=== PATIENT | female | born 1970 | race American Indian/Alaskan Native ===

== ENCOUNTER 2016-12-18 11:35 | Emergency (ER) | payer SELFPAY | END 2016-12-18 13:20 | disposition left against medical advice (07) | LOC: ED 11:35 | DX: R10.9 Unspecified abdominal pain (principal); Z53.21 Procedure and treatment not carried out due to patient leaving prior to being seen by health care provider ==

== ENCOUNTER 2019-04-25 17:50 | Emergency (ER) | payer MEDICAID, OTHER ==
[2019-04-25] MEDS ORDERED: ASPIRIN PO ONE (18:22)
--- NOTE | 2019-04-25 18:24 | Emergency Department Report ---
Chief Complaint: Chest Pain Stated Complaint: CHEST PAIN Time Seen by Provider: 04/25/19 18:20 - HPI History of Present Illness: This is a 48 y.o. F. with substernal chest pain x 2 days. CC: SOB, pain worse with movement Patient states it feel like something cracked in chest. Current cigarette and marijuana smoker. - Exam Vital Signs: Vital Signs 04/25/19 18:20 Temperature 99.9 F H Pulse Rate 84 Respiratory 22 Rate Blood Pressure 123/91 O2 Sat by Pulse 96 Oximetry MSE screening note: Focused history and physical exam performed. Due to findings the following was ordered: This initial assessment/diagnostic orders/clinical plan/treatment(s) is/are subject to change based on patient's health status, clinical progression and re- assessment by fellow clinical providers in the ED. Further treatment and workup at subsequent clinical providers discretion. Patient/guardians urged not to elope from the ED as their condition may be serious if not clinically assessed and managed. Initial orders include: 1- Patient sent to [facility] for further evaluation and treatment 2- Labs, EKG, & CXR ED Disposition for MSE Condition: Stable
[2019-04-25 19:10] LABS: Basophils # (Auto) 0.1 K/mm3 (0.0-0.1); Basophils % (Auto) 1.1 % (0.0-1.8); Eosinophils # (Auto) 0.2 K/mm3 (0.0-0.4); Eosinophils % (Auto) 3.3 % (0.0-4.3); Hematocrit 43.1 % (30.3-42.9); Hemoglobin 14.5 gm/dl (10.1-14.3); Lymphocytes # (Auto) 1.5 K/mm3 (1.2-5.4); Lymphocytes % (Auto) 24.8 % (13.4-35.0); Mean Corpuscular HGB Conc 34 % (30-34); Mean Corpuscular Volume 99 fl (79-97); Monocytes # (Auto) 0.4 K/mm3 (0.0-0.8); Monocytes % (Auto) 7.5 % (0.0-7.3); Red Blood Count 4.38 M/mm3 (3.65-5.03); Red Cell Distribution Width 14.1 % (13.2-15.2)
[2019-04-25 19:27] LABS: BUN/Creatinine Ratio 18; Blood Urea Nitrogen 11 mg/dL (7-17); Calcium 9.1 mg/dL (8.4-10.2); Hemolysis Index 7
[2019-04-25 19:40] LABS: Platelet Count 64 K/mm3 (140-440)
--- NOTE | 2019-04-25 20:19 | XRay Report ---
PROCEDURE: XR CHEST 1V AP TECHNIQUE: Chest radiograph single view. HISTORY: Chest Pain COMPARISONS: None . FINDINGS: Single frontal view of the chest was acquired. The heart is normal in size. The lungs appea r clear. The pleura and mediastinum are within normal limits. IMPRESSION: No active disease in the chest This document is electronically signed by Luis Armando Lang MD., Apr 25 2019 08:17:31 PM ET
[2019-04-25] MEDS ORDERED: PERCOCET 5/325 PO STA (22:55)
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
[2019-04-26 01:13] VITALS: BP 116/67
== END 2019-04-26 01:13 | disposition home or self-care (01) ==
LOC: ED 17:50
DX: M94.0 Chondrocostal junction syndrome [Tietze] (principal); F17.200 Nicotine dependence, unspecified, uncomplicated; F12.10 Cannabis abuse, uncomplicated
CPT/HCPCS: 36415; 71045; 71250; 80048; 84484; 85025; 93005; 93010; 99285

== ENCOUNTER 2019-09-08 07:19 | Outpatient (CLI) | payer MEDICAID ==
--- NOTE | 2019-09-08 10:24 | Vascular Lab Report ---
DUPLEX DOPPLER LOWER EXTREMITY ARTERIAL, BILATERAL INDICATION: I73.9)Peripheral vascular disease, unspecified. TECHNIQUE: Arterial duplex examination of both lower extremities performed using B-mode, color flow and spectral Doppler assessment. FINDINGS: RIGHT: Common Femoral Artery: PSV 73 cm/sec. Triphasic waveform. Proximal SFA: PSV 88 cm/sec. Triphasic waveform. Mid SFA: PSV 96 cm/sec. Triphasic waveform. Distal SFA: PSV 76 cm/sec. Triphasic waveform. Popliteal artery: PSV 71 cm/sec. Triphasic waveform. Posterior tibial artery: PSV 59 cm/sec. Triphasic waveform. Anterior tibial artery: PSV 60 cm/sec. Triphasic waveform. Dorsalis Pedis Artery: PSV 34 cm/sec. Triphasic waveform. LEFT: Common Femoral Artery: PSV 81 cm/sec. Triphasic waveform. Proximal SFA: PSV 78 cm/sec. Triphasic waveform. Mid SFA: PSV 76 cm/sec. Triphasic waveform. Distal SFA: PSV 84 cm/sec. Triphasic waveform. Popliteal artery: PSV 57 cm/sec. Triphasic waveform. Posterior tibial artery: PSV 56 cm/sec. Triphasic waveform. Anterior tibial artery: PSV: 41 cm/s. Biphasic waveform. Dorsalis Pedis Artery: PSV 38 cm/sec. Biphasic waveform. IMPRESSION: No significant lower extremity peripheral artery disease. Doppler Waveform: * Triphasic is normal. * Biphasic is abnormal if clear transition from triphasic signal along vascular tree. * Monophasic is abnormal. Signer Name: Edgardo Nieves Jr, MD Signed: 09/08/2019 10:19 AM Workstation Name: [id number]
--- NOTE | 2019-09-08 11:35 | Fluoroscopy Report ---
UPPER GI HISTORY: K21.9) GASTRO-ESOPHAGEAL REFLUX DISEASE WITHOUT ESOPHAGITIS/R11.1. TECHNIQUE: Single and double contrast barium technique utilized to evaluate the esophagus, stomach, and duodenal C-loop. FINDINGS: To begin the exam, swallowing was evaluated in the lateral position under direct fluorosco py. Swallowing was normal. No mucosal irregularity, mass, mass effect, or critical stenosis. There were no abnormal tertiary c ontractions as seen with dysmotility. No gastroesophageal reflux. IMPRESSION: Unremarkable exam. Fluoroscopic time: 0.9 minutes Number of fluoroscopic images: 29 Signer Name: Edgardo Nieves Jr, MD Signed: 09/08/2019 11:31 AM Workstation Name: [id number]
--- NOTE | 2019-09-12 11:39 | Mammography Report ---
DIGITAL SCREENING MAMMOGRAM WITH CAD, 09/08/2019 INDICATION: Baseline screening mammography. TECHNIQUE: Digital bilateral 2D mammography was obtained in the craniocaudal and mediolateral obliq ue projections. This examination was interpreted with the benefit of Computer-Aided Detection analysi s. COMPARISON: None. FINDINGS: Breast Density: There are scattered areas of fibroglandular density. There is no evidence of dominant mass, suspicious calcifications or architectural distortion in the r ight breast. A left outer parenchymal asymmetry on the CC view requires additional imaging. There may be correlation on the MLO view. No architectural distortion or suspicious calcifications of the left breast. IMPRESSION: Left asymmetry requiring additional imaging. Recommend recall for left CC and MLO spot ma gnification views and left breast ultrasound if needed. Follow up recommendation: Special View: Mag Category 0: Incomplete. Needs additional imaging evaluation and/or prior mammograms for comparison. A "normal" or negative report should not discourage follow up or biopsy of a clinically significant f inding. A written summary of these findings will be mailed to the patient. The patient will be entered into a mammography reporting system which will generate a reminder letter for the patient's next appointmen t at the appropriate interval. The [employer] recommends yearly mammograms starting at age 40 and continuing as l joann as a woman is in good health. Breast MRI is recommended for women with an approximate 20-25% or greater lifetime risk of breast cancer, including women with a strong family history of breast or ova johanna cancer or who have been treated for Hodgkin's disease. Signer Name: Delmar Stewart MD Signed: 09/12/2019 11:34 AM Workstation Name: [id number]
== END 2019-09-08 07:20 | disposition home or self-care (01) ==
LOC: MAMMO 07:19
PROVIDERS: ATTEND Internal Medicine
DX: Z12.31 Encounter for screening mammogram for malignant neoplasm of breast (principal); K21.9 Gastro-esophageal reflux disease without esophagitis; R11.10 Vomiting, unspecified; M25.569 Pain in unspecified knee; I73.9 Peripheral vascular disease, unspecified; F17.200 Nicotine dependence, unspecified, uncomplicated
CPT/HCPCS: 74247; 77067; 93925

== ENCOUNTER 2019-10-31 13:21 | Outpatient (CLI) | payer MEDICAID ==
[2019-10-31 13:56] LABS: Albumin 3.4 g/dL (3.9-5); Bilirubin,Direct 0.3 mg/dL (0-0.2)
[2019-10-31 14:07] LABS: Hepatitis C Virus Antibody Non-Reactive (NonReactive)
[2019-10-31 15:14] LABS: Hepatitis B Surface Antigen Non-Reactive (Negative)
[2019-11-03 15:13] LABS: Vitamin D, 25-OH, D2 <4 ng/mL
== END 2019-10-31 13:22 | disposition home or self-care (01) ==
LOC: LAB 13:21
PROVIDERS: ATTEND Internal Medicine
DX: R94.5 Abnormal results of liver function studies (principal); E55.9 Vitamin D deficiency, unspecified
CPT/HCPCS: 36415; 80074; 80076; 82306

== ENCOUNTER 2020-04-03 11:00 | Outpatient (CLI) | payer MEDICAID | END 2020-04-03 11:01 | disposition home or self-care (01) | LOC: SLR 11:00 | PROVIDERS: ATTEND Internal Medicine | DX: G47.33 Obstructive sleep apnea (adult) (pediatric) (principal); E66.9 Obesity, unspecified | CPT/HCPCS: 95810 ==

== ENCOUNTER 2020-05-16 06:53 | Day surgery (SDC) | payer MEDICAID ==
[2020-05-16] MEDS ORDERED: LIDOCAINE (1%) 10 MG/1 ML VIAL 20 ML MDV ONE ×2 (13:04→13:56)
[2020-05-16] MEDS ORDERED: BUPIVACAINE/PF (0.5%) 5 MG/1 ML 30 ML VIAL INFILTRATI ONE ×2 (13:05→13:49)
[2020-05-16] MEDS ORDERED: BUPIVACAINE/PF (0.25%) 2.5 MG/ML 30 ML VIAL INFILTRATI ONE (13:05)
[2020-05-16] MEDS ORDERED: LIDOCAINE (1%) 10 MG/1 ML VIAL 20 ML MDV INFILTRATI ONE (13:42)
[2020-05-16 14:16] VITALS: BP 144/87
--- NOTE | 2020-05-16 16:27 | XRay Report ---
LEFT HIP ONE VIEW INDICATION: LT HIP ARTHRITIS. COMPARISON: 09/12/2019 IMPRESSION: 58 seconds of fluoroscopy time was provided by radiology during needle placement by orth opedics. A single AP fluoroscopic view of the left hip is presented with needle placement overlying t he medial joint space. There are moderate to severe degenerative changes at the left hip. The left f emoral head appears mildly deformed which could represent osteonecrosis. Signer Name: Edgardo Nieves Jr, MD Signed: 05/16/2020 4:22 PM Workstation Name: [id number]
--- NOTE | 2020-05-23 08:51 | Procedure Note ---
Date of procedure: 05/16/20 Pre-op diagnosis: Chronic left hip pain Post-op diagnosis: same Procedure: [Left] femoral and obturator nerve block hip joint Procedure The patient was brought to the OR placed on the or table in the supine position next C-arm fluoroscopy was used to establish landmarks around the hip joint following this the [left] hip and groin area was prepped and draped in a sterile manner a timeout procedure was done to identify the patient and correct operative site. Using the 21-gauge spinal needle a 0 fluoroscopy the anterior lateral portion of the acetabular rim was identified the spinal needle was placed up against the anterior border and 2% Marcaine was injected in the area of the femoral nerve articular branches. Following this a second spinal needle was then placed along the area corresponding to the Ischium on C-arm this area was anesthetized with lidocaine followed by insertion of the 21-gauge spinal needle and it was advanced just lateral to the teardrop on the inferior rim of the acetabulum ball was palpated as well The 2% Marcaine was injected into this location to anesthetize the obturator nerve the spinal needle was then removed pressure was applied over the puncture wound was followed by placement of 2 Band-Aids. The patient tolerated the procedure he was then taken back to the preop holding area where he was discharged to home Anesthesia: local Surgeon: SUNG VILLALTA Estimated blood loss: minimal Pathology: none Condition: stable Disposition: observation
== END 2020-05-16 06:54 | disposition home or self-care (01) ==
LOC: OR 06:53
PROVIDERS: ATTEND Orthopaedic Surgery
DX: M25.552 Pain in left hip (principal); G89.29 Other chronic pain; K21.9 Gastro-esophageal reflux disease without esophagitis; M19.90 Unspecified osteoarthritis, unspecified site; F17.210 Nicotine dependence, cigarettes, uncomplicated; Z79.899 Other long term (current) drug therapy; Z98.891 History of uterine scar from previous surgery; Z87.440 Personal history of urinary (tract) infections; Z72.89 Other problems related to lifestyle; Z98.890 Other specified postprocedural states; Z86.2 Personal history of diseases of the blood and blood-forming organs and certain disorders involving the immune mechanism

== ENCOUNTER 2020-05-27 11:58 | Outpatient (CLI) | payer MEDICAID ==
[2020-05-27 12:17] LABS: Basophils % (Auto) 0.7 % (0.0-1.8); Eosinophils # (Auto) 0.2 K/mm3 (0.0-0.4); Eosinophils % (Auto) 2.8 % (0.0-4.3); Hematocrit 42.6 % (30.3-42.9); Hemoglobin 14.5 gm/dl (10.1-14.3); Lymphocytes # (Auto) 1.3 K/mm3 (1.2-5.4); Mean Corpuscular HGB Conc 34 % (30-34); Mean Corpuscular Volume 101 fl (79-97); Monocytes # (Auto) 0.5 K/mm3 (0.0-0.8); Monocytes % (Auto) 8.4 % (0.0-7.3); Red Blood Count 4.23 M/mm3 (3.65-5.03); Red Cell Distribution Width 14.6 % (13.2-15.2)
[2020-05-27 12:21] LABS: Platelet Count 65 K/mm3 (140-440)
[2020-05-27 13:07] LABS: Bilirubin,Direct 0.3 mg/dL (0-0.2)
[2020-05-27 13:08] LABS: Albumin 3.2 g/dL (3.9-5)
== END 2020-05-27 11:59 | disposition home or self-care (01) ==
LOC: LAB 11:58
PROVIDERS: ATTEND Internal Medicine
DX: R94.5 Abnormal results of liver function studies (principal); D69.6 Thrombocytopenia, unspecified; R60.0 Localized edema; I10 Essential (primary) hypertension
CPT/HCPCS: 36415; 80076; 85025

== ENCOUNTER 2020-07-29 11:00 | Outpatient (CLI) | payer MEDICAID | END 2020-07-29 11:01 | disposition home or self-care (01) | LOC: SLR 11:00 | PROVIDERS: ATTEND Otolaryngology | DX: G47.33 Obstructive sleep apnea (adult) (pediatric) (principal); E66.9 Obesity, unspecified; R40.0 Somnolence | CPT/HCPCS: 95811 ==

== ENCOUNTER 2020-08-30 11:41 | Outpatient (CLI) | payer MEDICAID ==
[2020-08-30 12:39] LABS: Basophils % (Auto) 0.7 % (0.0-1.8); Eosinophils # (Auto) 0.2 K/mm3 (0.0-0.4); Hemoglobin 14.7 gm/dl (10.1-14.3); Lymphocytes # (Auto) 1.3 K/mm3 (1.2-5.4); Lymphocytes % (Auto) 30.1 % (13.4-35.0); Mean Corpuscular HGB Conc 35 % (30-34); Mean Corpuscular Volume 98 fl (79-97); Monocytes # (Auto) 0.4 K/mm3 (0.0-0.8); Monocytes % (Auto) 8.2 % (0.0-7.3); Red Blood Count 4.27 M/mm3 (3.65-5.03); Red Cell Distribution Width 14.1 % (13.2-15.2)
[2020-08-30 12:58] LABS: Albumin 3.4 g/dL (3.9-5); Bilirubin,Direct 0.3 mg/dL (0-0.2)
[2020-08-30 12:59] LABS: Platelet Count 52 K/mm3 (140-440)
== END 2020-08-30 11:42 | disposition home or self-care (01) ==
LOC: LAB 11:41
PROVIDERS: ATTEND Internal Medicine
DX: E55.9 Vitamin D deficiency, unspecified (principal); E56.9 Vitamin deficiency, unspecified; D69.6 Thrombocytopenia, unspecified; R73.09 Other abnormal glucose; R94.5 Abnormal results of liver function studies
CPT/HCPCS: 36415; 80076; 82306; 82607; 83036; 85025

== ENCOUNTER 2020-10-15 09:40 | Emergency (ER) | payer MEDICAID ==
[2020-10-15 09:54] VITALS: BP 139/91
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
[2020-10-15 10:41] LABS: Basophils % (Auto) 0.5 % (0.0-1.8); Eosinophils # (Auto) 0.2 K/mm3 (0.0-0.4); Eosinophils % (Auto) 3.7 % (0.0-4.3); Hematocrit 44.9 % (30.3-42.9); Hemoglobin 15.3 gm/dl (10.1-14.3); Lymphocytes # (Auto) 1.4 K/mm3 (1.2-5.4); Lymphocytes % (Auto) 26.1 % (13.4-35.0); Mean Corpuscular HGB Conc 34 % (30-34); Mean Corpuscular Volume 99 fl (79-97); Monocytes # (Auto) 0.5 K/mm3 (0.0-0.8); Monocytes % (Auto) 8.7 % (0.0-7.3); Red Blood Count 4.52 M/mm3 (3.65-5.03); Red Cell Distribution Width 13.8 % (13.2-15.2)
[2020-10-15 10:56] LABS: Platelet Count 67 K/mm3 (140-440)
[2020-10-15 11:06] LABS: Alanine Aminotransferase 40 units/L (7-56); Albumin 3.4 g/dL (3.9-5); Blood Urea Nitrogen 10 mg/dL (7-17); Calcium 8.9 mg/dL (8.4-10.2); Hemolysis Index 2
[2020-10-15 11:19] LABS: Bilirubin,Urine NEG (Negative); Blood,Urine NEG (Negative); Color,Urine Yellow (Yellow); Protein,Urine <15 mg/dL mg/dL (Negative); Urobilinogen,Urine < 2.0 mg/dL (<2.0)
[2020-10-15 11:21] LABS: BUN/Creatinine Ratio 14
--- NOTE | 2020-10-15 15:03 | Cat Scan Report ---
CT ABDOMEN AND PELVIS WITH CONTRAST INDICATION / CLINICAL INFORMATION: RLQ pain, N/V. TECHNIQUE: Axial CT images were obtained through the abdomen and pelvis after 100 mL of Omnipaque [address] scans at this location are performed using CT dose reduction for ALARA by means of automated exposure control. COMPARISON: CT abdomen and pelvis dated 11/06/2014. FINDINGS: LOWER CHEST: Unremarkable LIVER: There is cirrhotic morphology of the liver. There are stable linear areas of hypoattenuation a t the hepatic dome without focal hepatic lesion identified. GALLBLADDER/BILIARY TREE: There is cholelithiasis. No CT findings of cholecystitis. PANCREAS: Unremarkable SPLEEN: Borderline splenomegaly, measuring 13.2 cm. No focal lesion is identified. ADRENALS: Unremarkable KIDNEYS / URETER: Unremarkable URINARY BLADDER: Bladder is partially decompressed, though grossly unremarkable. REPRODUCTIVE ORGANS: Unremarkable STOMACH / SMALL BOWEL: Stomach and small bowel are normal in caliber. No evidence of bowel inflammati on. COLON: Colon is unremarkable. The appendix is visualized and is normal. LYMPH NODES: No significant adenopathy. VASCULATURE: No significant abnormality. OTHER: No free air, free fluid, or focal fluid collection is identified. SKELETAL SYSTEM: Moderate left hip osteoarthritis. Mild scattered degenerative changes of the spine. No acute osseous findings. IMPRESSION: 1. No acute abnormality of the abdomen or pelvis. 2. Cirrhotic morphology of the liver with borderline splenomegaly. 3. Other stable chronic and incidental findings, as above. Signer Name: Ang Aguilar MD Signed: 10/15/2020 2:58 PM Workstation Name: [id number]
== END 2020-10-15 14:52 | disposition left against medical advice (07) ==
LOC: ED 09:40
DX: K74.60 Unspecified cirrhosis of liver (principal); K76.9 Liver disease, unspecified; K80.20 Calculus of gallbladder without cholecystitis without obstruction; R10.31 Right lower quadrant pain; K21.9 Gastro-esophageal reflux disease without esophagitis; M19.90 Unspecified osteoarthritis, unspecified site; E66.01 Morbid (severe) obesity due to excess calories; F17.200 Nicotine dependence, unspecified, uncomplicated; Z79.899 Other long term (current) drug therapy; Z68.43 Body mass index [BMI] 50.0-59.9, adult; Z98.890 Other specified postprocedural states
CPT/HCPCS: 36415; 74177; 80053; 81001; 85025; 99284; Q9967

== ENCOUNTER 2021-02-05 23:16 | Observation (INO) | payer MEDICAID ==
[2021-02-05] MEDS ORDERED: ONDANSETRON 4 MG/2 ML INJ IV ONE (23:36)
[2021-02-05] MEDS ORDERED: MORPHINE 4 MG/1 ML INJ IV ONE (23:36)
[2021-02-05] MEDS ORDERED: FAMOTIDINE 20 MG/2 ML INJ IV ONE (23:36)
--- NOTE | 2021-02-05 23:41 | Event Note ---
ED Screening Note Date of service: 02/05/21 Time: 23:38 ED Screening Note: Patient is a 50 yo AA female with a h/o HTN and morbid obesity who presents to the ED with acute onset RUQ pain for the last 6 hours. Patient states that she was initially diagnosed with cholelithiasis 5 months ago and has not been able to follow up with any General Surgeon. Patient states that he symptoms got worse in the last 2 hours. Patient denies dizziness, fever, chills, diarrhea, cough, chest pain, dyspnea, or sore throat, syncope or dysuria and hematuria This initial assessment/diagnostic orders/clinical plan/treatment(s) is/are subject to change based on patients health status, clinical progression and re- assessment by fellow clinical providers in the ED. Further treatment and workup at subsequent clinical providers discretion. Patient/guardian urged not to elope from the ED as their condition may be serious if not clinically assessed and managed. Initial orders include: CBC, CMP, UA, Lipase, EKG, Troponin, RUQ Gallbladder US
[2021-02-05 23:52] LABS: Basophils % (Auto) 0.8 % (0.0-1.8); Eosinophils # (Auto) 0.2 K/mm3 (0.0-0.4); Eosinophils % (Auto) 3.8 % (0.0-4.3); Hematocrit 42.6 % (30.3-42.9); Hemoglobin 14.6 gm/dl (10.1-14.3); Lymphocytes # (Auto) 0.9 K/mm3 (1.2-5.4); Lymphocytes % (Auto) 22.3 % (13.4-35.0); Mean Corpuscular HGB Conc 34 % (30-34); Mean Corpuscular Volume 99 fl (79-97); Monocytes # (Auto) 0.4 K/mm3 (0.0-0.8); Monocytes % (Auto) 9.5 % (0.0-7.3); Red Blood Count 4.29 M/mm3 (3.65-5.03); Red Cell Distribution Width 13.5 % (13.2-15.2)
[2021-02-06 00:02] LABS: Platelet Count 68 K/mm3 (140-440)
[2021-02-06 00:37] LABS: Alanine Aminotransferase 36 units/L (7-56); Albumin 3.6 g/dL (3.9-5); Blood Urea Nitrogen 9 mg/dL (7-17); Calcium 8.8 mg/dL (8.4-10.2); Hemolysis Index 3
[2021-02-06 00:40] LABS: BUN/Creatinine Ratio 13
--- NOTE | 2021-02-06 00:51 | Emergency Department Report ---
ED Abdominal Pain HPI - General Chief Complaint: Abdominal Pain Stated Complaint: RT SIDE ABD PAIN PUI?: No Time Seen by Provider: 02/06/21 00:47 Source: patient Mode of arrival: Ambulatory Limitations: No Limitations - History of Present Illness Initial Comments: Patient is a 50-year-old female that presents emergency room with complaints of right upper quadrant pain. Patient states that her right upper quadrant pain started today at 4:30 PM. Patient states she has not had anything sent to eat since breakfast. Patient denies nausea vomiting and diarrhea. Patient states the pain is caused her to lose her appetite. Patient states she had dwyer for breakfast this morning and has not eaten since. Patient states the pain is a 10 out of 10. Patient states the pain is better with rest and worse with movement. Patient dates the pain is also worse with palpation and eating. Patient denies fever and chills. Patient denies nausea vomiting and diarrhea. Patient denies chest pain or shortness of breath. Patient states she has a history of gallstones. Patient states she is never seen a surgeon for her gallbladder. Patient denies recent travel. Patient denies recent international travel. Patient denies exposure to the novel coronavirus. Patient denies sick contacts. Patient denies fever and chills. Patient denies cough. Patient denies diarrhea. Patient denies coming in contact with anybody with symptoms of the novel coronavirus. Complaint: abdominal pain -: Sudden Location: RUQ Radiation: none Migration to: no migration Severity: severe Severity scale (0 -10): 7 Quality: stabbing Consistency: constant Improves With: rest Worsens With: eating, movement Associated Symptoms: denies: nausea, vomiting, diarrhea, fever, chills, constipation, dysuria, hematemesis, hematochezia, melena, hematuria, anorexia, syncope - Related Data Home Medications Medication Instructions Recorded Confirmed Last Taken Omeprazole 20 mg PO DAILY 05/03/20 05/06/20 Unknown Allergies Allergy/AdvReac Type Severity Reaction Status Date / Time No Known Allergies Allergy Unverified 05/14/20 14:06 ED Review of Systems ROS: Stated complaint: RT SIDE ABD PAIN Other details as noted in HPI Constitutional: denies: chills, fever Eyes: denies: eye pain, eye discharge, vision change ENT: denies: ear pain, throat pain Respiratory: denies: cough, shortness of breath, wheezing Cardiovascular: denies: chest pain, palpitations Endocrine: no symptoms reported Gastrointestinal: as per HPI, abdominal pain. 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 chronic back pain. Morbid obesity - Surgical History Past Surgical History?: Yes Additional Surgical History: , pins in both hips - Family History Family history: no significant - Social History Smoking Status: Current Every Day Smoker Substance Use Type: None - Medications Home Medications: Home Medications Medication Instructions Recorded Confirmed Last Taken Type Omeprazole 20 mg PO DAILY 05/03/20 05/06/20 Unknown History ED Physical Exam - General Limitations: No Limitations General appearance: alert, in no apparent distress - Head Head exam: Present: atraumatic, normocephalic - Eye Eye exam: Present: normal appearance - ENT ENT exam: Present: mucous membranes moist - Neck Neck exam: Present: normal inspection - Respiratory Respiratory exam: Present: normal lung sounds bilaterally. Absent: respiratory distress - Cardiovascular Cardiovascular Exam: Present: regular rate, normal rhythm. Absent: systolic murmur, diastolic murmur, rubs, gallop - GI/Abdominal GI/Abdominal exam: Present: soft, tenderness (Right upper quadrant tenderness to palpation), normal bowel sounds - Extremities Exam Extremities exam: Present: normal inspection - Back Exam Back exam: Present: normal inspection - Neurological Exam Neurological exam: Present: alert, oriented X3 - Psychiatric Psychiatric exam: Present: normal affect, normal mood - Skin Skin exam: Present: warm, dry, intact, normal color. Absent: rash ED Course Vital Signs 02/05/21 23:31 Temperature 97.8 F Pulse Rate 70 Respiratory 20 Rate Blood Pressure 162/99 O2 Sat by Pulse 99 Oximetry - Reevaluation(s) Reevaluation #1: Patient's pain is better with morphine. Patient's ultrasound is pending. 02/06/21 00:57 Reevaluation #2: Patient states her pain is back to 10 out of 10. Patient given Dilaudid. I discussed all results with patient. I discussed plan of care with patient. Patient agrees with plan of care and admission. Patient to be admitted to the hospitalist service. 02/06/21 01:58 - Consultations Consultation #1: Hospitalist consulted for admission. Hospitalist to admit patient. 02/06/21 01:58 Consultation #2: General surgery consulted. 02/06/21 01:58 ED Medical Decision Making - Lab Data Result diagrams: 02/05/21 23:41 02/05/21 23:41 - EKG Data -: EKG Interpreted by Me EKG shows normal: sinus rhythm, axis, intervals, QRS complexes, ST-T waves Rate: normal - Radiology Data Radiology results: report reviewed ULTRASOUND ABDOMEN, LIMITED (RIGHT UPPER QUADRANT) INDICATION: RUQ Pain - r/o Cholecystitis. COMPARISON: None available. FINDINGS: Pancreas: Visualized portion shows no significant abnormality. Liver: Increased echogenicity. Gallbladder: Small gallstones. The gallbladder is distended measuring 12 cm. No wall thickening. Bile ducts: Normal. Common Bile Duct measures 2.8 mm. Free fluid: None. Additional Findings: None. IMPRESSION: 1. Small gallstones and gallbladder distention. 2. Suspected fatty liver. - Medical Decision Making Patient is a 50-year-old female that presents emergency room with complaints of right upper quadrant pain. Patient has history of gallstones. Patient had an ultrasound which shows multiple gallstones and distended gallbladder. Patient has symptomatic gallstones. Patient given multiple pain medications in the ER and pain continued. Patient given fluids. Patient had labs done which showed abnormal bilirubin and abnormal LFTs. LFTs could be abnormal due to fatty liver. Patient admitted to the hospital service for further evaluation treatment. Patient made n.p.o. Neurosurgery consulted. Critical care time documented due to the multiple reassessments, prolonged time at the bedside, interpretation of diagnostics and labs and multiple consultants.. - Differential Diagnosis Cholecystitis, cholelithiasis, abdominal pain, gallbladder colic Critical Care Time: Yes Critical care time in (mins) excluding proc time.: 35 Critical care attestation.: If time is entered above; I have spent that time in minutes in the direct care of this critically ill patient, excluding procedure time. Critical Care Time: 35 minutes ED Disposition Clinical Impression: Gallstones, Abnormal LFTs, Elevated bilirubin, Fatty liver Abdominal pain Qualifiers: Abdominal location: right upper quadrant Qualified Code(s): R10.11 - Right upper quadrant pain Cholelithiasis Qualifiers: Cholelithiasis location: gallbladder and bile duct Cholecystitis presence: without cholecystitis Biliary obstruction: with biliary obstruction Qualified Code(s): K80.71 - Calculus of gallbladder and bile duct without cholecystitis with obstruction Disposition: DC-09 OP ADMIT IP TO THIS HOSP Is pt being admited?: Yes Does the pt Need Aspirin: No Condition: Critical Instructions: Abdominal Pain (ED) Time of Disposition: 02:03
--- NOTE | 2021-02-06 01:20 | Ultrasound Report ---
ULTRASOUND ABDOMEN, LIMITED (RIGHT UPPER QUADRANT) INDICATION: RUQ Pain - r/o Cholecystitis. COMPARISON: None available. FINDINGS: Pancreas: Visualized portion shows no significant abnormality. Liver: Increased echogenicity. Gallbladder: Small gallstones. The gallbladder is distended measuring 12 cm. No wall thickening. Bile ducts: Normal. Common Bile Duct measures 2.8 mm. Free fluid: None. Additional Findings: None. IMPRESSION: 1. Small gallstones and gallbladder distention. 2. Suspected fatty liver. Signer Name: Dutch Lou MD Signed: 02/06/2021 1:16 AM Workstation Name: [id number]
[2021-02-06] MEDS ORDERED: HYDROmorphone 1 MG/1 ML INJ IV ONE (01:56)
[2021-02-06] MEDS ORDERED: SODIUM CHLORIDE 0.9% 1000 ML 1,000 ML IV ONE (01:57)
[2021-02-06 03:24] VITALS: BP 144/81
[2021-02-06] MEDS ORDERED: ONDANSETRON 4 MG/2 ML INJ IV PRN ×2 (08:27→09:00)
--- NOTE | 2021-02-06 08:34 | History and Physical Report ---
History of Present Illness Date of examination: 02/06/21 Date of admission: 02/06/21 02:03 Chief complaint: Right upper quadrant pain History of present illness: 50-year-old -[place] female with past medical history significant for obesity presents to the emergency department with complaints of right upper quadrant pain that started yesterday morning. She said the pain was very bad 15 out of 10 in intensity, sometimes sharp sometimes dull, no radiation, pain is getting worse when she lies flat, no alleviating factors identified. Patient denied shortness of breath, fever or cough. Patient denied any contact with Covid patient. Patient said she had one episode of vomiting but no diarrhea or constipation. She said she is working aerobics to lose weight and she lost 22 pounds over a year. Work-up in the emergency department was unremarkable except the right upper quadrant ultrasound which showed gallstones and distended gallbladder. LFTs s light elevation in AST. General surgery was consulted and patient admitted to medical floor. REVIEW OF SYSTEMS: GENERAL: no weight change, no fatigue, no fever HEAD: no head ache EYES: no blurry vision, no acute visual loss EARS: no hearing loss, no discharge, no earache NOSE: no stuffiness, no sneezing, no discharge MOUTH, THROAT AND NECK: no bleeding gums, no sore throat, no swollen neck CARDIAC: no palpitations, no dyspnea on exertion, no orthopnea, no PND, no edema, no chest pain RESPIRATORY: no shortness of breath, no wheeze, no cough, no sputum, no hemoptysis, no asthma GI: no decreased appetite, no nausea, no vomiting, no dysphagia, no diarrhea, no constipation, no abdominal pain URINARY: No urgency, hematuria, dysuria or frequency. MUSCULOSKELETAL: no muscle weakness, no pain, no joint stiffness NEUROLOGIC: no loss of sensation/numbness, no tingling, no tremors, no weakness/paralysis HEMATOLOGIC: no anemia, no easy bruising SKIN: no rashes ENDOCRINE: no heat/cold intolerance, no polyuria, no polydipsia, no thyroid problems, no diabetes PSYCHIATRIC: no anxiety, no depression, no suicidal ideations Past History Past Medical History: other (Obese) Past Surgical History: , total hip replacement Social history: smoking (1 pack over 3 days, smokes marijuana), full code. migdalia es: alcohol abuse, prescription drug abuse, IV drug use Family history: no significant family history Medications and Allergies Allergies Allergy/AdvReac Type Severity Reaction Status Date / Time No Known Allergies Allergy Unverified 05/14/20 14:06 Home Medications Medication Instructions Recorded Confirmed Last Taken Type Famotidine [Acid Controller] 10 mg PO DAILY 02/06/21 02/06/21 Unknown History Active Meds: Active Medications Acetaminophen (Acetaminophen 325 Mg Tab) 650 mg PO Q4H PRN PRN Reason: Pain MILD(1-3)/Fever >100.5/NUÑEZ Famotidine (Famotidine 20 Mg/2 Ml Inj) 20 mg IV BID ESHA Sodium Chloride (Nacl 0.45% 1000 Ml) 1,000 mls @ 75 mls/hr IV DIRECT [facility] Morphine Sulfate (Morphine 2 Mg/1 Ml Inj) 2 mg IV Q4H PRN PRN Reason: Pain, Moderate (4-6) Ondansetron HCl (Ondansetron 4 Mg/2 Ml Inj) 4 mg IV Q8H PRN PRN Reason: Nausea And Vomiting Ondansetron HCl (Ondansetron 4 Mg/2 Ml Inj) 4 mg IV Q8H PRN PRN Reason: N/V unrelieved by Reglan Sodium Chloride (Sodium Chloride 0.9% 10 Ml Flush Syringe) 10 ml IV BID ESHA Sodium Chloride (Sodium Chloride 0.9% 10 Ml Flush Syringe) 10 ml IV PRN PRN PRN Reason: LINE FLUSH Exam - Physical Exam Narrative exam: Not in cardiopulmonary distress. The patient is morbidly obese Vital signs as documented. Head exam is unremarkable. No scleral icterus . Neck is without jugular venous distension, thyromegaly, or carotid bruits. Lungs are clear to auscultation. Cardiac exam reveals regular rate and Rhythm. Abdominal exam reveals normal bowel sounds, no organomegaly. Right upper quadrant tenderness. Extremities are nonedematous and both femoral and pedal pulses are normal. LEAF FAT SCRAPER: Alert and oriented 3. No focal weakness. - Constitutional Vitals: Temp Pulse Resp BP Pulse Ox 97.5 F L 52 L 16 144/81 98 02/06/21 03:18 02/06/21 03:18 02/06/21 03:18 02/06/21 03:18 02/06/21 03:18 HEART Score - HEART Score Troponin: Troponin T < 0.010 ng/mL (0.00-0.029) 02/05/21 23:41 Results - Labs CBC & Chem 7: 02/05/21 23:41 02/05/21 23:41 Labs: Laboratory Last Values WBC 4.1 K/mm3 (4.5-11.0) L 02/05/21 23:41 RBC 4.29 M/mm3 (3.65-5.03) 02/05/21 23:41 Hgb 14.6 gm/dl (10.1-14.3) H 02/05/21 23:41 Hct 42.6 % (30.3-42.9) 02/05/21 23:41 MCV 99 fl (79-97) H 02/05/21 23:41 MCH 34 pg (28-32) H 02/05/21 23:41 MCHC 34 % (30-34) 02/05/21 23:41 RDW 13.5 % (13.2-15.2) 02/05/21 23:41 Plt Count 68 K/mm3 (140-440) L 02/05/21 23:41 Lymph % (Auto) 22.3 % (13.4-35.0) 02/05/21 23:41 [place] % (Auto) 9.5 % (0.0-7.3) H 02/05/21 23:41 Eos % (Auto) 3.8 % (0.0-4.3) 02/05/21 23:41 Baso % (Auto) 0.8 % (0.0-1.8) 02/05/21 23:41 Lymph # (Auto) 0.9 K/mm3 (1.2-5.4) L 02/05/21 23:41 [place] # (Auto) 0.4 K/mm3 (0.0-0.8) 02/05/21 23:41 Eos # (Auto) 0.2 K/mm3 (0.0-0.4) 02/05/21 23:41 Baso # (Auto) 0.0 K/mm3 (0.0-0.1) 02/05/21 23:41 Seg Neutrophils % 63.6 % (40.0-70.0) 02/05/21 23:41 Seg Neutrophils # 2.6 K/mm3 (1.8-7.7) 03/10/21 23:41 Sodium 137 mmol/L (137-145) 02/05/21 23:41 Potassium 4.3 mmol/L (3.6-5.0) 02/05/21 23:41 Chloride 100.1 mmol/L (98-107) 02/05/21 23:41 Carbon Dioxide 29 mmol/L (22-30) 02/05/21 23:41 Anion Gap 12 mmol/L 02/05/21 23:41 BUN 9 mg/dL (7-17) 02/05/21 23:41 Creatinine 0.7 mg/dL (0.6-1.2) 02/05/21 23:41 Estimated GFR > 60 ml/min 02/05/21 23:41 BUN/Creatinine Ratio 13 % 02/05/21 23:41 Glucose 111 mg/dL (65-100) H 02/05/21 23:41 Calcium 8.8 mg/dL (8.4-10.2) 02/05/21 23:41 Total Bilirubin 1.90 mg/dL (0.1-1.2) H 02/05/21 23:41 AST 62 units/L (5-40) H 02/05/21 23:41 ALT 36 units/L (7-56) 02/05/21 23:41 Alkaline Phosphatase 201 units/L (35-129) H 02/05/21 23:41 Troponin T < 0.010 ng/mL (0.00-0.029) 02/05/21 23:41 Total Protein 7.3 g/dL (6.3-8.2) 02/05/21 23:41 Albumin 3.6 g/dL (3.9-5) L 02/05/21 23:41 Albumin/Globulin Ratio 1.0 % 02/05/21 23:41 Lipase 38 units/L (13-60) 02/05/21 23:44 Assessment and Plan Assessment and plan: Symptomatic cholelithiasis -Ultrasound showed small stones and distended gallbladder -Dr. Calvillo consulted -Keep her n.p.o., IV fluids and pain control Morbid obesity -Patient is working on losing weight and encouraged her to continue Active tobacco smoker -Counseled about cessation of smoking DVT prophylaxis -SCDs because patient is scheduled for surgery Disposition -Mid to medical floor CODE STATUS; full Management plan was discussed with the patient and was in agreement with the plan of care. Advance Directives: Yes VTE prophylaxis?: Mechanical Reason for no VTE Prophylaxis: Surgical contraindication Plan of care discussed with patient/family: Yes
[2021-02-06] MEDS ORDERED: ACETAMINOPHEN 325 MG TAB PO PRN (09:00)
[2021-02-06] MEDS ORDERED: MORPHINE 2 MG/1 ML INJ IV PRN (09:00)
[2021-02-06] MEDS: SODIUM CHLORIDE 0.45% 1000 ML 1,000 ML IV SCH ×2 (09:47→16:42)
[2021-02-06] MEDS ORDERED: FAMOTIDINE 20 MG/2 ML INJ IV SCH (10:00)
--- NOTE | 2021-02-06 17:14 | Consultation ---
History of Present Illness Consult date: 02/06/21 Reason for consult: abdominal pain - History of present illness History of present illness: 50 yo female with 24 hr h/o RUQ pain, nausea and vomiting. She has a h/o thrombocytopenia with a platelet count as low as 51k. Past History Past Medical History: other (Obese, thrombocytopenia) Past Surgical History: , total hip replacement Social history: smoking (1 pack over 3 days, smokes marijuana), full code. denies: alcohol abuse, prescription drug abuse, IV drug use Family history: no significant family history Medications and Allergies Allergies Allergy/AdvReac Type Severity Reaction Status Date / Time No Known Allergies Allergy Unverified 05/14/20 14:06 Home Medications Medication Instructions Recorded Confirmed Last Taken Type Famotidine [Acid Controller] 10 mg PO DAILY 02/06/21 02/06/21 Unknown History Active Meds: Active Medications Acetaminophen (Acetaminophen 325 Mg Tab) 650 mg PO Q4H PRN PRN Reason: Pain MILD(1-3)/Fever >100.5/NUÑEZ Famotidine (Famotidine 20 Mg/2 Ml Inj) 20 mg IV BID [facility] Last Admin: 02/06/21 09:48 Dose: 20 mg Documented by: Sodium Chloride (Nacl 0.45% 1000 Ml) 1,000 mls @ 75 mls/hr IV DIRECT [facility] Last Admin: 02/06/21 16:42 Dose: 75 mls/hr Documented by: Piperacillin Sod/Tazobactam Sod (Zosyn/Ns 4.5gm/100ml) 4.5 gm in 100 mls @ 200 mls/hr IV Q8HR [facility]; Protocol Morphine Sulfate (Morphine 2 Mg/1 Ml Inj) 2 mg IV Q4H PRN PRN Reason: Pain, Moderate (4-6) Last Admin: 02/06/21 16:34 Dose: 2 mg Documented by: Ondansetron HCl (Ondansetron 4 Mg/2 Ml Inj) 4 mg IV Q8H PRN PRN Reason: Nausea And Vomiting Sodium Chloride (Sodium Chloride 0.9% 10 Ml Flush Syringe) 10 ml IV BID [facility] Last Admin: 02/06/21 16:42 Dose: 10 ml Documented by: Sodium Chloride (Sodium Chloride 0.9% 10 Ml Flush Syringe) 10 ml IV PRN PRN PRN Reason: LINE FLUSH Review of Systems All systems: negative (none) Exam Vital Signs Temp Pulse Resp BP Pulse Ox 97.8 F 70 20 162/99 99 02/05/21 23:31 02/05/21 23:31 02/05/21 23:31 02/05/21 23:31 02/05/21 23:31 - General physical appearance Positive: well developed, well nourished, no distress - Eyes Positive: PERRL, normal occular movement - ENT Positive: normal pinna, normal nares, normal mucosa, no hearing loss, no conges tion - Neck Positive: no masses, no bruits, trachea midline, no venous distension - Respiratory Positive: normal expansion, normal respiratory effort, clear to auscultation - Cardiovascular Rhythm: regular Heart Sounds: Present: S1 & S2. Absent: rub, click - Extremities Extremities: no ischemia, pulses symmetrical, No edema - Breasts Breasts: normal, no mass, no skin changes - Abdomen Abdomen: Present: soft, bowel sounds normal. Absent: tender, distended Hernia: none - Genitourinary Male Genitourinary: normal Female Genitourinary: normal - Integumentary no rash, no growths, no abnormal pigmentation - Neurologic Neurologic: alert and oriented to time, place and person, motor strength and sensation are grossly intact - Musculoskeletal normal gait, normal posture - Psychiatric Psychiatric: appropriate mood/affect, intact judgment & insight Results - Labs 02/05/21 23:41 02/05/21 23:41 Abnormal lab results 02/05/21 02/05/21 Range/Units 23:41 23:41 WBC 4.1 L (4.5-11.0) K/mm3 Hgb 14.6 H (10.1-14.3) gm/dl MCV 99 H (79-97) fl MCH 34 H (28-32) pg Plt Count 68 L (140-440) K/mm3 [place] % (Auto) 9.5 H (0.0-7.3) % Lymph # (Auto) 0.9 L (1.2-5.4) K/mm3 Glucose 111 H (65-100) mg/dL Total Bilirubin 1.90 H (0.1-1.2) mg/dL AST 62 H (5-40) units/L Alkaline Phosphatase 201 H (35-129) units/L Albumin 3.6 L (3.9-5) g/dL Diabetes panel 02/05/21 Range/Units 23:41 Sodium 137 (137-145) mmol/L Potassium 4.3 (3.6-5.0) mmol/L Chloride 100.1 (98-107) mmol/L Carbon Dioxide 29 (22-30) mmol/L BUN 9 (7-17) mg/dL Creatinine 0.7 (0.6-1.2) mg/dL Glucose 111 H (65-100) mg/dL Calcium 8.8 (8.4-10.2) mg/dL AST 62 H (5-40) units/L ALT 36 (7-56) units/L Alkaline Phosphatase 201 H (35-129) units/L Total Protein 7.3 (6.3-8.2) g/dL Albumin 3.6 L (3.9-5) g/dL Calcium panel 02/05/21 Range/Units 23:41 Calcium 8.8 (8.4-10.2) mg/dL Albumin 3.6 L (3.9-5) g/dL Pituitary panel 02/05/21 Range/Units 23:41 Sodium 137 (137-145) mmol/L Potassium 4.3 (3.6-5.0) mmol/L Chloride 100.1 (98-107) mmol/L Carbon Dioxide 29 (22-30) mmol/L BUN 9 (7-17) mg/dL Creatinine 0.7 (0.6-1.2) mg/dL Glucose 111 H (65-100) mg/dL Calcium 8.8 (8.4-10.2) mg/dL Adrenal panel 02/05/21 Range/Units 23:41 Sodium 137 (137-145) mmol/L Potassium 4.3 (3.6-5.0) mmol/L Chloride 100.1 (98-107) mmol/L Carbon Dioxide 29 (22-30) mmol/L BUN 9 (7-17) mg/dL Creatinine 0.7 (0.6-1.2) mg/dL Glucose 111 H (65-100) mg/dL Calcium 8.8 (8.4-10.2) mg/dL Total Bilirubin 1.90 H (0.1-1.2) mg/dL AST 62 H (5-40) units/L ALT 36 (7-56) units/L Alkaline Phosphatase 201 H (35-129) units/L Total Protein 7.3 (6.3-8.2) g/dL Albumin 3.6 L (3.9-5) g/dL - Imaging US - abdomen: report reviewed Assessment and Plan - Patient Problems (1) Acute cholecystitis Current Visit: Yes Status: Acute Plan to address problem: 1) Repeat CBC and CMP 2) GI consult re ? ERCP b/o hyperbilirubinemia 3) Hematology consult re thrombocytopenia 4) Consider holding Pepcid in light of #3 5) IV Zosyn
[2021-02-06] MEDS ORDERED: PIPERACIL/TAZOBACTA 4.5/NS 100 4.5 GM/100 ML VIAL IV SCH (17:30)
--- NOTE | 2021-02-07 05:07 | Discharge Summary ---
Providers - Providers Date of Admission: 02/06/21 02:03 Date of discharge: 02/06/21 Attending physician: VIVIENNE LAZARO MD 02/06/21 04:16 Consult to Physician [CONS] Routine Comment: Consulting Provider: SAGAR CALVILLO Physician Instructions: Reason For Exam: gallbladder stone and pain Primary care physician: THERMODYNAMICIST Hospitalization Reason for admission: symptomatic cholelithiasis Condition: Stable Pertinent studies: [facility] [place] Hospital course: History of present illness: 50-year-old -[place] female with past medical history significant for obesity presents to the emergency department with complaints of right upper quadrant pain that started yesterday morning. She said the pain was very bad 15 out of 10 in intensity, sometimes sharp sometimes dull, no radiation, pain is getting worse when she lies flat, no alleviating factors identified. Patient denied shortness of breath, fever or cough. Patient denied any contact with Covid patient. Patient said she had one episode of vomiting but no diarrhea or constipation. She said she is working aerobics to lose weight and she lost 22 pounds over a year. Work-up in the emergency department was unremarkable except the right upper quadrant ultrasound which showed gallstones and distended gallbladder. LFTs slight elevation in AST. General surgery was consulted and patient admitted to medical floor. Hospital course Patient was admitted to the floor and symptoms were resolved. Patient was NPO, was on IV fluids and pain medications as needed. I have discussed with Dr Calvillo and he said he will not do the surgery today and patient was on clear liquid diet. During my examination patient doesn't have intentions to leave the hospital. when i read the Nurse not patient left the hospital and Code walker was called, when the nurse called patient was in her house and there was no reported injuries. I was not notified. Disposition: [id number] LEFT AGAINST MED ADVICE Time spent for discharge: 25 minutes - Discharge Diagnoses (1) Morbid obesity with BMI of 50.0-59.9, adult Status: Chronic (2) Abdominal pain Status: Acute Qualifiers: Abdominal location: right upper quadrant Qualified Code(s): R10.11 - Right upper quadrant pain (3) Cholelithiasis Status: Acute Qualifiers: Cholelithiasis location: gallbladder and bile duct Cholecystitis presence: without cholecystitis Biliary obstruction: with biliary obstruction Qualified Code(s): K80.71 - Calculus of gallbladder and bile duct without cholecystitis with obstruction Core Measure Documentation - Palliative Care Palliative Care/ Comfort Measures: Not Applicable - Core Measures Any of the following diagnoses?: none Exam - Physical Exam Narrative exam: Not in cardiopulmonary distress. The patient is morbidly obese Vital signs as documented. Head exam is unremarkable. No scleral icterus . Neck is without jugular venous distension, thyromegaly, or carotid bruits. Lungs are clear to auscultation. Cardiac exam reveals regular rate and Rhythm. Abdominal exam reveals normal bowel sounds, no organomegaly. Right upper quadrant tenderness. Extremities are nonedematous and both femoral and pedal pulses are normal. 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 No focal weakness. - Constitutional Vitals: Temp Pulse Resp BP Pulse Ox 97.5 F L 52 L 16 144/81 98 02/06/21 03:18 02/06/21 03:18 02/06/21 03:18 02/06/21 03:18 02/06/21 03:18 Plan Activity: no restrictions Weight Bearing Status: Full Weight Bearing Diet: low fat Follow up with: PRIMARY MD SUZANNA [Primary Care Provider] - 7 Days
== END 2021-02-06 18:45 | disposition left against medical advice (07) ==
LOC: ED 23:16 → 3A 02-06 02:03
PROVIDERS: ADMIT Internal Medicine Geriatric Medicine; ATTEND Internal Medicine
DX: R94.5 Abnormal results of liver function studies (principal); K80.20 Calculus of gallbladder without cholecystitis without obstruction; E66.01 Morbid (severe) obesity due to excess calories; K21.9 Gastro-esophageal reflux disease without esophagitis; M19.90 Unspecified osteoarthritis, unspecified site; E80.7 Disorder of bilirubin metabolism, unspecified; K76.0 Fatty (change of) liver, not elsewhere classified; D69.6 Thrombocytopenia, unspecified; E66.9 Obesity, unspecified; F17.210 Nicotine dependence, cigarettes, uncomplicated; Z98.891 History of uterine scar from previous surgery; Z96.649 Presence of unspecified artificial hip joint; Z68.43 Body mass index [BMI] 50.0-59.9, adult
CPT/HCPCS: 36415; 76705; 80053; 83690; 84484; 85025; 93005; 96361; 96374; 96375; 96376; 99291; 99406; G0378; J1170; J2270; J2405; J7030

== ENCOUNTER 2021-05-15 09:49 | Outpatient (CLI) | payer MEDICAID ==
[2021-05-15 10:10] LABS: Basophils % (Auto) 0.6 % (0.0-1.8); Eosinophils # (Auto) 0.2 K/mm3 (0.0-0.4); Eosinophils % (Auto) 3.2 % (0.0-4.3); Hemoglobin 14.6 gm/dl (10.1-14.3); Lymphocytes # (Auto) 1.3 K/mm3 (1.2-5.4); Lymphocytes % (Auto) 24.9 % (13.4-35.0); Mean Corpuscular HGB Conc 35 % (30-34); Mean Corpuscular Volume 97 fl (79-97); Monocytes # (Auto) 0.5 K/mm3 (0.0-0.8); Monocytes % (Auto) 8.3 % (0.0-7.3); Red Blood Count 4.32 M/mm3 (3.65-5.03); Red Cell Distribution Width 13.7 % (13.2-15.2)
[2021-05-15 10:19] LABS: Platelet Count 59 K/mm3 (140-440)
[2021-05-15 10:33] LABS: Albumin 3.7 g/dL (3.9-5); Bilirubin,Direct 0.2 mg/dL (0-0.2)
== END 2021-05-15 09:50 | disposition home or self-care (01) ==
LOC: XRAY 09:49
PROVIDERS: ATTEND Internal Medicine
DX: R94.5 Abnormal results of liver function studies (principal)
CPT/HCPCS: 36415; 80076; 85025

== ENCOUNTER 2021-09-28 11:04 | Emergency (ER) | payer MEDICAID ==
[2021-09-28 11:10] VITALS: BP 137/98
[2021-09-28] MEDS ORDERED: KETOROLAC 60 MG/2 ML INJ IM ONE (11:40)
[2021-09-28] MEDS ORDERED: HYDROcodone/ACETAMINOPHEN 5-325 MG TAB PO ONE (11:40)
[2021-09-28] MEDS ORDERED: CYCLOBENZAPRINE 10 MG TAB PO ONE (11:41)
--- NOTE | 2021-09-28 12:36 | Emergency Department Report ---
ED General Adult HPI - General Chief complaint: Back Pain/Injury Stated complaint: LOWER BACK PAIN Time Seen by Provider: 09/28/21 11:41 Source: patient Mode of arrival: Ambulatory Limitations: No Limitations - History of Present Illness Initial comments: 51-year-old -Iranian female patient presents with complaints of sudden onset of right lower back pain x yesterday. Patient states the pain started when she was cleaning her kitchen and reached down into the covert. She describes the pain as sharp and catching states it worsens with certain ranges of motion and deep inhalation. She denies any mid back pain, numbness/tingling/weakness in her limbs, radiation of the pain, urinary symptoms, chest pain, or fever/chills/sweats. No history of kidney stones per patient. She rates her pain as a 9/10 in severity. Ibuprofen at home is not helping per patient. - Related Data Home Medications Medication Instructions Recorded Confirmed Last Taken Famotidine [Acid Controller] 10 mg PO DAILY 02/06/21 02/06/21 Unknown Previous Rx's Medication Instructions Recorded Last Taken Type Cyclobenzaprine [Flexeril] 10 mg PO TID PRN #15 tablet 09/28/21 Unknown Rx Naproxen 500 mg PO BID PRN #20 tablet 09/28/21 Unknown Rx Allergies Allergy/AdvReac Type Severity Reaction Status Date / Time No Known Allergies Allergy Verified 09/28/21 11:05 ED Review of Systems ROS: Stated complaint: LOWER BACK PAIN Other details as noted in HPI Constitutional: denies: chills, diaphoresis, fever, malaise, weakness Respiratory: denies: cough, shortness of breath Cardiovascular: denies: chest pain Gastrointestinal: denies: abdominal pain, nausea, vomiting Genitourinary: denies: urgency, dysuria, frequency, hematuria Musculoskeletal: back pain Neurological: denies: numbness, paresthesias, abnormal gait ED Past Medical Hx - Past Medical History Hx Hypertension: Yes Hx Diabetes: No Hx GERD: Yes (GERD) Hx Sickle Cell Disease: No 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 chronic back pain. Morbid obesity - Surgical History Additional Surgical History: , pins in both hips - Social History Smoking Status: Heavy Tobacco Smoker - Medications Home Medications: Home Medications Medication Instructions Recorded Confirmed Last Taken Type Famotidine [Acid Controller] 10 mg PO DAILY 02/06/21 02/06/21 Unknown History Cyclobenzaprine [Flexeril] 10 mg PO TID PRN #15 tablet 09/28/21 Unknown Rx Naproxen 500 mg PO BID PRN #20 tablet 09/28/21 Unknown Rx ED Physical Exam - General Limitations: No Limitations General appearance: alert, in no apparent distress, obese (Morbid) - Head Head exam: Present: atraumatic, normocephalic - Eye Eye exam: Present: normal appearance - Respiratory Respiratory exam: Present: normal lung sounds bilaterally. Absent: respiratory distress - Cardiovascular Cardiovascular Exam: Present: regular rate, normal rhythm. Absent: systolic murmur, diastolic murmur, rubs, gallop - GI/Abdominal GI/Abdominal exam: Present: soft. Absent: tenderness - Extremities Exam Extremities exam: Present: full ROM - Back Exam Back exam: Present: full ROM, paraspinal tenderness (Right lower lumbar without overlying skin changes or obvious deformity). Absent: CVA tenderness (R), CVA tenderness (L), vertebral tenderness - Neurological Exam Neurological exam: Present: alert, oriented X3, normal gait (Patient ambulates with a cane) - Psychiatric Psychiatric exam: Present: normal affect, normal mood - Skin Skin exam: Present: warm, dry, intact, normal color. Absent: rash ED Course Vital Signs 09/28/21 11:08 Temperature 97.6 F Pulse Rate 83 Respiratory 20 Rate Blood Pressure 137/98 O2 Sat by Pulse 96 Oximetry ED Medical Decision Making - Medical Decision Making 51-year-old -Iranian female patient presents with complaints of sudden onset of right lower back pain x yesterday. Patient states the pain started when she was cleaning her kitchen and reached down into the covert. She describes the pain as sharp and catching states it worsens with certain ranges of motion and deep inhalation. She denies any mid back pain, numbness/tingling/weakness in her limbs, radiation of the pain, urinary symptoms, chest pain, or fev er/chills/sweats. No history of kidney stones per patient. She rates her pain as a 9/10 in severity. Ibuprofen at home is not helping per patient. No vertebral tenderness noted on exam. Patient denies pain radiation to the abdomen onto the leg. UA is negative. Will treat for muscle strain/spasm conservatively. Patient to follow-up with her PCP in 3 to 5 days. Discussed in detail signs and symptoms that should prompt immediate return to the ED with patient verbalizes understanding. Critical care attestation.: If time is entered above; I have spent that time in minutes in the direct care of this critically ill patient, excluding procedure time. ED Disposition Clinical Impression: Low back pain Disposition: HOME / SELF CARE / HOMELESS Is pt being admited?: No Condition: Stable Instructions: Lumbar Strain Prescriptions: Cyclobenzaprine [Flexeril] 10 mg PO TID PRN #15 tablet PRN Reason: Muscle Spasm Naproxen 500 mg PO BID PRN #20 tablet PRN Reason: pain Referrals: PRIMARY CARE, [Primary Care Provider] - 3-5 Days
[2021-09-28 13:05] LABS: Bilirubin,Urine NEG (Negative); Blood,Urine NEG (Negative); Color,Urine Yellow (Yellow); Mucus,Urine FEW /HPF; Protein,Urine <15 mg/dL mg/dL (Negative); Urobilinogen,Urine < 2.0 mg/dL (<2.0)
== END 2021-09-28 13:40 | disposition home or self-care (01) ==
LOC: ED 11:04
DX: M54.50 Low back pain, unspecified (principal); K21.9 Gastro-esophageal reflux disease without esophagitis; I10 Essential (primary) hypertension; F17.200 Nicotine dependence, unspecified, uncomplicated; Z98.890 Other specified postprocedural states; Z79.899 Other long term (current) drug therapy
CPT/HCPCS: 81001; 96372; 99283; J1885

== ENCOUNTER 2022-03-05 11:14 | Outpatient (CLI) | payer MEDICAID ==
[2022-03-05 11:53] LABS: Basophils # (Auto) 0.1 K/mm3 (0.0-0.1); Basophils % (Auto) 1.3 % (0.0-1.8); Eosinophils # (Auto) 0.2 K/mm3 (0.0-0.4); Eosinophils % (Auto) 3.9 % (0.0-4.3); Hematocrit 44.8 % (30.3-42.9); Hemoglobin 14.6 gm/dl (10.1-14.3); Lymphocytes # (Auto) 1.3 K/mm3 (1.2-5.4); Lymphocytes % (Auto) 28.2 % (13.4-35.0); Mean Corpuscular HGB Conc 33 % (30-34); Mean Corpuscular Volume 99 fl (79-97); Monocytes # (Auto) 0.3 K/mm3 (0.0-0.8); Monocytes % (Auto) 7.2 % (0.0-7.3); Red Blood Count 4.53 M/mm3 (3.65-5.03); Red Cell Distribution Width 13.9 % (13.2-15.2)
[2022-03-05 11:54] LABS: Platelet Count 54 K/mm3 (140-440)
[2022-03-05 12:14] LABS: Alanine Aminotransferase 42 units/L (7-56); Albumin 3.5 g/dL (3.9-5); BUN/Creatinine Ratio 20; Blood Urea Nitrogen 14 mg/dL (7-17); Calcium 9.2 mg/dL (8.4-10.2); HDL Cholesterol 59 mg/dL (40-59); Hemolysis Index 3; LDL Cholesterol,Direct 121 mg/dL (50-130)
== END 2022-03-05 11:15 | disposition home or self-care (01) ==
LOC: LAB 11:14
PROVIDERS: ATTEND Internal Medicine
DX: Z00.00 Encounter for general adult medical examination without abnormal findings (principal); D69.6 Thrombocytopenia, unspecified; I66.01 Occlusion and stenosis of right middle cerebral artery; R94.5 Abnormal results of liver function studies; I10 Essential (primary) hypertension; R53.83 Other fatigue; E55.9 Vitamin D deficiency, unspecified; R73.03 Prediabetes
CPT/HCPCS: 36415; 80053; 80061; 82306; 83036; 84443; 85025

== ENCOUNTER 2022-07-14 09:29 | Outpatient (CLI) | payer MEDICAID ==
[2022-07-14 09:59] LABS: Basophils % (Auto) 0.8 % (0.0-1.8); Eosinophils # (Auto) 0.1 K/mm3 (0.0-0.4); Eosinophils % (Auto) 2.8 % (0.0-4.3); Hematocrit 41.3 % (30.3-42.9); Hemoglobin 13.9 gm/dl (10.1-14.3); Lymphocytes # (Auto) 1.2 K/mm3 (1.2-5.4); Lymphocytes % (Auto) 22.2 % (13.4-35.0); Mean Corpuscular HGB Conc 34 % (30-34); Mean Corpuscular Volume 99 fl (79-97); Monocytes # (Auto) 0.5 K/mm3 (0.0-0.8); Monocytes % (Auto) 10.1 % (0.0-7.3); Red Blood Count 4.16 M/mm3 (3.65-5.03); Red Cell Distribution Width 13.9 % (13.2-15.2)
[2022-07-14 10:01] LABS: Platelet Count 52 K/mm3 (140-440)
[2022-07-14 10:18] LABS: Albumin 3.6 g/dL (3.9-5); Bilirubin,Direct 0.3 mg/dL (0-0.2)
== END 2022-07-14 09:30 | disposition home or self-care (01) ==
LOC: LAB 09:29
PROVIDERS: ATTEND Internal Medicine
DX: R94.5 Abnormal results of liver function studies (principal); D69.6 Thrombocytopenia, unspecified
CPT/HCPCS: 36415; 80076; 85025